=== PATIENT | male | born 1985 | race Two or more races ===

== ENCOUNTER 2020-10-29 10:22 | Emergency (ER) | payer BC ==
[~2020-10-29] VITALS: Ht 177.8 cm; Wt 79.4 kg
[2020-10-29 10:29] VITALS: BP 110/84
== END 2020-10-29 11:05 | disposition home or self-care (01) ==
LOC: ER 10:28
DX: J02.0 Streptococcal pharyngitis (principal); F17.200 Nicotine dependence, unspecified, uncomplicated

== ENCOUNTER 2021-03-12 18:35 | Emergency (ER) | payer BC ==
[~2021-03-12] VITALS: Ht 177.8 cm; Wt 79.4 kg
[2021-03-12] MEDS ORDERED: ASPIRIN 81 MG TAB.CHEW ONE (18:59)
[2021-03-12] MEDS ORDERED: ACETAMINOPHEN ES 500 MG TABLET ONE (18:59)
[2021-03-12] MEDS ORDERED: IV NS 0.9% 1,000 ML BAG IV ONE (19:00)
[2021-03-12] MEDS ORDERED: ASPIRIN 81 MG TAB.CHEW PO ONE (19:00)
[2021-03-12] MEDS ORDERED: ACETAMINOPHEN ES 500 MG TABLET PO ONE (19:00)
[2021-03-12 19:02] LABS: BASOPHILS % (AUTO) 0.3 % (0.0-2.0); EOSINOPHILS % (AUTO) 2.4 % (0.0-6.0); HEMATOCRIT 49 % (39-51); HEMOGLOBIN 16.7 g/dL (13.5-17.5); LYMPHOCYTES # (AUTO) 2.9 /CMM (0.8-4.8); LYMPHOCYTES % (AUTO) 27.4 % (20.0-44.0); MEAN CORPUSCULAR HGB CONC 34 g/dl (31.0-36.0); MEAN CORPUSCULAR VOLUME 93 fL (80-96); MONOCYTES # (AUTO) 0.9 /CMM (0.1-1.30); MONOCYTES % (AUTO) 8.5 % (2.0-12.0); NEUTROPHILS # (AUTO) 6.5 /CMM (1.8-8.9); NEUTROPHILS % (AUTO) 61.4 % (43.0-81.0); PLATELET COUNT (AUTO) 220 /CMM (150-450); RED BLOOD CELL COUNT(AUTO) 5.32 MIL/uL (4.5-6.0); WHITE BLOOD COUNT (AUTO) 10.6 K/uL (4.3-11.0)
[2021-03-12 19:10] LABS: CARBON DIOXIDE 28 mmol/L (21-32); CHLORIDE 103 mmol/L (98-107); CREATININE 0.8 mg/dL (0.6-1.3); GLUCOSE 95 mg/dL (74-106); POTASSIUM 3.9 mmol/L (3.5-5.1); SODIUM SERUM 140 mmol/L (136-145); UREA NITROGEN, BLOOD 12 mg/dL (7-18)
[2021-03-12 19:16] LABS: ALANINE AMINOTRANSFERASE 61 U/L (12-78); ALBUMIN 4.2 g/dL (3.4-5.0); ALKALINE PHOSPHATASE 133 U/L (46-116); ASPARTATE AMINOTRANSFERASE 25 U/L (15-37); BILIRUBIN,DIRECT 0.1 mg/dL (0.0-0.2); BILIRUBIN,TOTAL 0.3 mg/dL (0.2-1.0); LIPASE 50 U/L (73-393); TOTAL PROTEIN, SERUM 7.9 g/dL (6.4-8.2)
--- NOTE | 2021-03-12 19:19 | NUR ---
Patient came in to the er c/o on and off chest pain. on room air, breathing evenly and unlabored. Connected to the monitor and pulse ox. kept comfortable, will continue to monitor accordingly.
--- NOTE | 2021-03-12 19:46 | NUR ---
RECEIVED REPORT FROM DAY SHIFT NURSE FOR KEO, PATIENT IN NO ACUTE DISTRESS, VSS.
[2021-03-12 20:12] VITALS: BP 121/88
--- NOTE | 2021-03-12 20:13 | NUR ---
Patient discharged to home in stable condition. Written and verbal after care instructions given. Patient verbalizes understanding of instruction.
== END 2021-03-12 20:13 | disposition home or self-care (01) ==
LOC: ER 18:41
DX: R00.2 Palpitations (principal); F17.200 Nicotine dependence, unspecified, uncomplicated; R20.2 Paresthesia of skin; R74.8 Abnormal levels of other serum enzymes
CPT/HCPCS: 36415; 71045; 80048; 80076; 83690; 84484; 85025; 93005; 96360; 99285; 99406; J7030

== ENCOUNTER 2021-06-28 08:36 | Emergency (ER) | payer BC ==
[~2021-06-28] VITALS: Ht 175.3 cm; Wt 79.4 kg
[2021-06-28 08:52] VITALS: BP 109/68
--- NOTE | 2021-06-28 08:52 | NUR ---
THE PATIENT BIBS FOR C/O NO SENSE OF SMELL AND COUGH. IN ROOM AIR AND DENIES SOB. RESPIRATION REGULAR AND UNLABORED. WILL CONTINUE TO MONITOR THE PATIENT.
--- NOTE | 2021-06-28 09:11 | NUR ---
COVID SWAB DONE AND SENT TO THE LAB
--- NOTE | 2021-06-28 09:27 | NUR ---
Patient discharged to home in stable condition. Written and verbal after care instructions given. Patient verbalizes understanding of instruction.
--- NOTE | 2021-06-29 12:37 | NUR ---
contact info called,,sandee answered,asked him to call us back for result
--- NOTE | 2021-06-29 12:40 | NUR ---
called and informed that the result for covid 19 is (+)
== END 2021-06-28 09:28 | disposition home or self-care (01) ==
LOC: ER 08:40
DX: U07.1 COVID-19 (principal); F17.200 Nicotine dependence, unspecified, uncomplicated
CPT/HCPCS: 99283; C9803; U0003

== ENCOUNTER 2024-09-26 20:28 | Emergency (ER) | payer BC ==
[~2024-09-26] VITALS: Ht 177.8 cm; Wt 79.4 kg
[2024-09-26 21:25] VITALS: BP 144/85; TEMP 98; O2SAT 98
== END 2024-09-26 22:23 | disposition left against medical advice (07) ==
LOC: ER 20:33
DX: R10.9 Unspecified abdominal pain (principal); Z53.21 Procedure and treatment not carried out due to patient leaving prior to being seen by health care provider